=== PATIENT | female | born 2000 | race Caucasian/White ===

== ENCOUNTER 2019-08-18 10:03 | Emergency (ER) | payer OTHER, SELFPAY ==
--- NOTE | 2019-08-18 10:07 | ED.WOUNDLAC ---
HPI - Wound/Laceration General Chief Complaint: Wound/Laceration Stated Complaint: cut on right hand Time Seen by Provider: 08/18/19 10:08 Source: patient and RN notes reviewed Mode of arrival: ambulatory Limitations: no limitations History of Present Illness HPI narrative: 17-year-old female presents with concern for laceration to her right hand. Reports last night around midnight she cut herself on a limited can. She reports she is up-to-date on her tetanus vaccine. She cleaned the wound last night and cleaned it again this morning. She denies any decreased range of motion, sensation, strength in the digit of her hand Extremity Location: Right: hand Related Data Allergies Allergy/AdvReac Type Severity Reaction Status Date / Time clavulanic acid Allergy Mild Rash Verified 08/18/19 10:08 Penicillins Allergy Mild Rash Verified 08/18/19 10:08 BETALACTAMASEIN Allergy Mild Rash Uncoded 08/18/19 10:08 Review of Systems Review of Systems: Narrative: CONSTITUTIONAL: Denies malaise, chills, sweats, or fever. SKIN: Reports laceration to the palmar aspect of the right hand MUSCULOSKELETAL: Denies musculoskeletal pain, decreased range of motion NEUROLOGIC: Denies numbness, weakness. All systems reviewed & are unremarkable except as noted in HPI and below PMFSH Social History Social History Gender identity (if verbalized by the patient): Female Comments At time of signature, agree with nursing past medical, surgical, social and family history. There is no relevant family history pertinent to the presenting complaint Exam Narrative: Exam Narrative: GENERAL: Well-appearing, well-nourished, and in no acute distress. HEAD: Normocephalic, atraumatic. EYES: PERRLA, conjunctivae clear NECK: Supple. CHEST: Speaks in full sentences. No respiratory distress. HEART: Regular rate and rhythm. Normal and equal peripheral pulses. EXTREMITIES: Right hand and digits of hand have normal strength and sensation. 5/5 strength with digit flexion, extension. Range of motion normal. No clubbing, cyanosis, or edema noted. No tenderness. Normal digital cascade with flexion of fingers, median, ulnar and radial nerve intact. Normal sensation of each side of finger. Can perform 'okay' sign, 'cross over finger test of index and middle fingers' and 'thumbs up' sign. No scissoring. Normal thumb opposition. Good capillary refill and radial pulse. Distal capillary refill <3 seconds. SKIN: C-shaped laceration, superficial noted to the palmar aspect of the right hand beneath the first digit, partially scabbed NEURO: Alert and oriented x3. PSYCH: Normal mood and affect Course Course Emergency Course: Discussed with patient closure options, discussed that glue is the best option at this time due to superficiality of the laceration, length of time since wound was sustained. Patient is aware of diagnosis, understands and agrees to treatment plan. Anticipatory guidance given. Patient agrees to follow-up as directed and is aware of reasons to seek care at the emergency department. Portions of this record may have been created with voice recognition software Vital Signs Vital signs: Reviewed. Procedures Laceration Laceration 1: Date: 08/18/19 Time: 10:10 Site: hand Side (If applicable): right Size (cm): 1.5 Description: flap (C-shaped) Depth: simple, single layer Pre-repair: wound explored and irrigated ====== Skin Level ====== Skin layer closed with: dermabond ====== Subcutaneous Layer ====== ====== Muscle Layer ====== ====== Tendon Layer ====== MDM - Wound/Laceration MDM Narrative Medical decision making narrative: Wound explored for foreign body and copious irrigation provided with no evidence of FB. Discussed the potential of retained foreign body with the patient and signs/symptoms that should prompt the patient to immediately go to the ED for reevaluation. The laceration was
[2019-08-18 10:17] VITALS: BP 118/74; PULSE 84; RESP 16; TEMP 36.9; O2SAT 99
== END 2019-08-18 10:45 | disposition home or self-care (01) ==
PROVIDERS: Emergency Provider Nurse Practitioner; PCP Family Medicine
DX: S61.411A Laceration without foreign body of right hand, initial encounter (principal); W26.8XXA Contact with other sharp object(s), not elsewhere classified, initial encounter
CPT/HCPCS: 12001; 99212; G0463

== ENCOUNTER 2023-12-16 08:46 | Outpatient (CLI) | payer OTHER, SELFPAY ==
--- NOTE | ~2023-12-16 | XR_ITS ---
Right Hand Technique: PA, oblique, and lateral views were obtained. Clinical History: Ganglion cyst Findings: No acute fracture or dislocation is seen. Osseous alignment is anatomic. Joint spaces are p reserved. Soft tissues are unremarkable. Impression: Unremarkable right hand. Reviewed, dictated and finalized at location M. Impression: Unremarkable right hand.
== END 2023-12-16 08:47 | disposition home or self-care (01) ==
LOC: ANHIMG 08:52
PROVIDERS: PCP Family Medicine; Visit Provider Plastic Surgery
DX: M67.431 Ganglion, right wrist (principal)
CPT/HCPCS: 73130

== ENCOUNTER 2024-01-13 07:56 | Outpatient (CLI) | payer OTHER, SELFPAY ==
--- NOTE | ~2024-01-13 | MR_ITS ---
EXAMINATION: MR wrist RT wo/w con DATE: 01/13/2024 08:53 INDICATION: Right wrist carpal sprain. Painful palpable lump at the dorsal carpus. TECHNIQUE: Magnetic resonance imaging (MRI) of the affected wrist was performed without intravenous c ontrast. Sequences performed include axial PD-weighted FSE and PD-weighted FS FSE, coronal PD-weighte d FS FSE and T1-weighted SE, and sagittal PD-weighted FS FSE and PD-weighted FSE and postcontrast axi al, sagittal and coronal T1-weighted FS FSE. COMPARISON: Right hand radiographs dated 12/16/2023 FINDINGS: Intrinsic ligaments: The scapholunate and lunotriquetral ligaments are normal. Triangular fibrocartilage complex (TFCC): The triangular fibrocartilage including its foveal and styloid attachments as well as the dorsal and volar radioulnar ligaments are normal. The ulnar collateral ligament, ulnotriquetral ligament and men iscal homologue are normal. The extensor carpi ulnaris tendon sheath is normal. Extensor wrist: There is focal magic angle artifact along the extensor carpi ulnaris tendon immediately distal to the tip the ulnar styloid process. Extensor tendons of the wrist are normal. No tenosynovitis. Flexor wrist: The flexor tendons of the wrist are normal. No abnormality in the carpal tunnel with normal median n erve. Guyon's canal: Guyon's canal including the ulnar nerve and artery are normal. Bones/other: Normal marrow signal. No fracture, erosions, avascular necrosis or abnormal marrow replacing process. Joint spaces are normal with no focal cartilage defects appreciated. 1.8 x 0.7 x 0.5 cm nonenhancin g T2 hyperintense ganglion cyst underlying the marker at the dorsal aspect of the carpus which appear s to arise from a neck arising from the midcarpal joint at the junction of the articulations between the scaphoid, lunate and capitate. No abnormally enhancing lesions identified. IMPRESSION: 1. 1.8 x 0.7 x 0.5 cm ganglion cyst at the dorsal aspect of the carpus. Otherwise unremarkable wrist MRI. Reviewed, dictated and finalized at location A. IC WORKER IMPRESSION: 1. 1.8 x 0.7 x 0.5 cm ganglion cyst at the dorsal aspect of the carpus. Otherwi se unremarkable wrist MRI.
== END 2024-01-13 07:57 | disposition home or self-care (01) ==
PROVIDERS: PCP Family Medicine; Visit Provider Plastic Surgery
DX: M67.431 Ganglion, right wrist (principal); S63.511A Sprain of carpal joint of right wrist, initial encounter; X58.XXXA Exposure to other specified factors, initial encounter
CPT/HCPCS: 73223; A9577